=== PATIENT | female | born 1965 | race Two or more races ===

== ENCOUNTER 2017-11-17 19:41 | Inpatient (IN) | payer SELFPAY ==
[~2017-11-17] VITALS: Ht 167.6 cm; Wt 72.8 kg
[2017-11-17 21:08] LABS: Basophils # (auto) 0 uL; Basophils % (auto) 0.3 % (0.0-2.0); Eosinophils # (auto) 0.1 uL; Eosinophils % (auto) 0.9 % (0.0-7.0); Hematocrit 36.5 % (36.0-46.0); Lymphocytes # (auto) 1.2 uL; Lymphocytes % (auto) 9.9 % (10.0-50.0); Mean Corpuscular Hemoglobin 31.1 pg (28.0-32.0); Mean Corpuscular Hgb Conc. 32.8 g/dL (32.0-36.0); Mean Corpuscular Volume 94.8 fL (80.0-100.0); Monocytes # (auto) 0.7 uL; Monocytes % (auto) 5.6 % (0.0-12.0); Neutrophils # (auto) 10.2 uL; Neutrophils % (auto) 83.3 % (37.0-80.0); Platelet Count (auto) 377 10^3/uL (140-450); Red Blood Cells 3.85 10^6/uL (4.0-5.20); Red Cell Distribution Width 15.1 % (11.8-14.3); White Blood Cell 12.2 10^3/uL (4.4-10.8)
[2017-11-17 21:26] LABS: BUN/Creatinine Ratio 12.3; Bilirubin, Total 0.4 mg/dL (0.2-1.0); Calcium 8.8 mg/dL (8.5-10.1); Potassium 3.9 mmol/L (3.5-5.1); Total Protein 7.2 g/dL (6.4-8.2)
[2017-11-18 02:16] LABS: Urine Bacteria None Seen /hpf (None Seen); Urine WBC None Seen /hpf (0 - 5)
[2017-11-18 02:37] LABS: Urine Blood Normal /uL (Negative); Urine Specific Gravity 1.005 (1.001-1.035)
[2017-11-18] MEDS ORDERED: ONDANSETRON HCL 4 MG/2 ML VIAL IV ONE ×2 (03:00→05:45)
[2017-11-18] MEDS ORDERED: MORPHINE SULFATE 10 MG/ML INJ 1ML SDV IV ONE (03:00)
[2017-11-18] MEDS ORDERED: HYDROmorphone HCL 2 MG/ML VL IV ONE (05:45)
[2017-11-18] MEDS ORDERED: HYDROmorphone HCL 2 MG/ML VL IV PRN ×2 (06:15→14:30)
[2017-11-18] MEDS ORDERED: ACETAMINOPHEN 500 MG TAB PO PRN (06:15)
[2017-11-18] MEDS: SODIUM CHLORIDE 0.9% 1,000 ML IV SCH ×3 (06:28→22:28)
[2017-11-18 06:59] LABS: Basophils # (auto) 0 uL; Basophils % (auto) 0.3 % (0.0-2.0); Eosinophils # (auto) 0 uL; Eosinophils % (auto) 0.2 % (0.0-7.0); Hematocrit 32.4 % (36.0-46.0); Hemoglobin 10.7 g/dL (12.2-16.2); Lymphocytes # (auto) 0.9 uL; Lymphocytes % (auto) 7.7 % (10.0-50.0); Mean Corpuscular Hgb Conc. 32.9 g/dL (32.0-36.0); Mean Corpuscular Volume 94.2 fL (80.0-100.0); Monocytes # (auto) 0.5 uL; Monocytes % (auto) 3.7 % (0.0-12.0); Neutrophils # (auto) 10.7 uL; Neutrophils % (auto) 88.1 % (37.0-80.0); Platelet Count (auto) 358 10^3/uL (140-450); Red Blood Cells 3.44 10^6/uL (4.0-5.20); Red Cell Distribution Width 14.7 % (11.8-14.3); White Blood Cell 12.2 10^3/uL (4.4-10.8)
[2017-11-18 07:24] LABS: BUN/Creatinine Ratio 21.8; Calcium 8.2 mg/dL (8.5-10.1); Potassium 4.1 mmol/L (3.5-5.1)
[2017-11-18] MEDS: cefTRIAXone 1GM/10ml IVPUSH 10 ML IV SCH (09:10)
[2017-11-18] MEDS: ONDANSETRON HCL 4 MG/2 ML VIAL IV PRN (10:16)
[2017-11-18] MEDS: metroNIDAZOLE 500MG/100ML 100 ML IV SCH ×2 (14:25→22:27)
[2017-11-18] MEDS ORDERED: HYDROmorphone HCL 2 MG/ML VL ONE (14:46)
[2017-11-18] MEDS: HYDROmorphone HCL 2 MG/ML VL IV PRN ×2 (15:00→20:03)
[2017-11-18] MEDS ORDERED: ABILIFY 5MG TABLET PO SCH (16:00)
[2017-11-18] MEDS ORDERED: IOHEXOL 350 MG/ML 100ML IJ ONE (16:07)
[2017-11-18 20:00] VITALS: BP 116/61
[2017-11-18 22:00] VITALS: BP 116/61
[2017-11-19] MEDS: HYDROmorphone HCL 2 MG/ML VL IV PRN ×6 (00:23→21:13)
[2017-11-19 05:00] VITALS: BP 132/86
[2017-11-19] MEDS: metroNIDAZOLE 500MG/100ML 100 ML IV SCH ×3 (05:50→21:54)
[2017-11-19 05:53] LABS: Basophils # (auto) 0.1 uL; Basophils % (auto) 0.6 % (0.0-2.0); Eosinophils # (auto) 0 uL; Eosinophils % (auto) 0.1 % (0.0-7.0); Hematocrit 34.4 % (36.0-46.0); Hemoglobin 11.3 g/dL (12.2-16.2); Lymphocytes # (auto) 0.6 uL; Lymphocytes % (auto) 4.5 % (10.0-50.0); Mean Corpuscular Hgb Conc. 32.8 g/dL (32.0-36.0); Mean Corpuscular Volume 94.7 fL (80.0-100.0); Monocytes # (auto) 0.9 uL; Monocytes % (auto) 7.1 % (0.0-12.0); Neutrophils % (auto) 87.7 % (37.0-80.0); Platelet Count (auto) 351 10^3/uL (140-450); Red Blood Cells 3.63 10^6/uL (4.0-5.20); Red Cell Distribution Width 14.8 % (11.8-14.3); White Blood Cell 12.5 10^3/uL (4.4-10.8)
[2017-11-19] MEDS: SODIUM CHLORIDE 0.9% 1,000 ML IV SCH ×3 (05:56→21:55)
[2017-11-19] MEDS: ONDANSETRON HCL 4 MG/2 ML VIAL IV PRN ×4 (05:56→21:13)
[2017-11-19 06:17] LABS: BUN/Creatinine Ratio 27.3; Calcium 8.1 mg/dL (8.5-10.1); Magnesium 2.6 mg/dL (1.6-2.6); Potassium 3.8 mmol/L (3.5-5.1)
[2017-11-19 08:00] VITALS: BP 124/81
[2017-11-19] MEDS: cefTRIAXone 1GM/10ml IVPUSH 10 ML IV SCH (09:04)
[2017-11-19 14:48] LABS: INR 1.02 (0.9-1.15); Partial Thromboplastin Time 24.5 sec (22.64-33.71); Prothrombin Time 11.1 sec (9.37-12.3)
[2017-11-19 16:23] VITALS: BP 119/75
[2017-11-19 20:00] VITALS: BP 122/90
[2017-11-19 22:00] VITALS: BP 122/90
[2017-11-20] MEDS: HYDROmorphone HCL 2 MG/ML VL IV PRN ×2 (01:19→05:21)
[2017-11-20] MEDS: ONDANSETRON HCL 4 MG/2 ML VIAL IV PRN ×3 (01:20→10:46)
[2017-11-20 05:00] VITALS: BP 139/75
[2017-11-20] MEDS: metroNIDAZOLE 500MG/100ML 100 ML IV SCH ×3 (06:04→21:44)
[2017-11-20] MEDS: SODIUM CHLORIDE 0.9% 1,000 ML IV SCH ×3 (06:22→21:44)
[2017-11-20 06:31] LABS: Basophils # (auto) 0 uL; Basophils % (auto) 0.3 % (0.0-2.0); Eosinophils # (auto) 0 uL; Hematocrit 34.1 % (36.0-46.0); Hemoglobin 11.1 g/dL (12.2-16.2); Lymphocytes # (auto) 0.6 uL; Lymphocytes % (auto) 4.9 % (10.0-50.0); Mean Corpuscular Hemoglobin 30.9 pg (28.0-32.0); Mean Corpuscular Hgb Conc. 32.5 g/dL (32.0-36.0); Mean Corpuscular Volume 95.2 fL (80.0-100.0); Monocytes # (auto) 0.8 uL; Monocytes % (auto) 6.7 % (0.0-12.0); Neutrophils # (auto) 10.6 uL; Neutrophils % (auto) 88.1 % (37.0-80.0); Platelet Count (auto) 342 10^3/uL (140-450); Red Blood Cells 3.59 10^6/uL (4.0-5.20); Red Cell Distribution Width 14.7 % (11.8-14.3)
[2017-11-20 07:02] LABS: BUN/Creatinine Ratio 37.9; Calcium 7.8 mg/dL (8.5-10.1); Potassium 3.7 mmol/L (3.5-5.1)
[2017-11-20 07:42] VITALS: BP 128/77
[2017-11-20 08:00] VITALS: BP 128/77
[2017-11-20] MEDS ORDERED: ROCURONIUM 10MG/ML 10ML VIAL IV ONE (08:03)
[2017-11-20] MEDS ORDERED: LIDOCAINE 1% HCL (LOCAL ANESTH.) INJ 20ML MDV ONE (08:03)
[2017-11-20] MEDS ORDERED: ceFAZolin 1GM/50ML 50 ML IV ONE (08:24)
[2017-11-20] MEDS ORDERED: SUCCINYLCHOLINE CHLORIDE 20 MG/ML 10ML VIAL IV ONE (08:28)
[2017-11-20] MEDS ORDERED: PROPOFOL 10 MG/ML 20 ML IV ONE (08:30)
[2017-11-20] MEDS ORDERED: MIDAZOLAM HCL 1MG/1ML-2 ML VIAL ONE (08:31)
[2017-11-20] MEDS: cefTRIAXone 1GM/10ml IVPUSH 10 ML IV SCH (08:36)
[2017-11-20] MEDS ORDERED: fentaNYL CITRATE 100 MCG/2 ML VL ONE (09:06)
[2017-11-20] MEDS ORDERED: KETOROLAC TROMETH 30 MG/ML 1ML VIAL ONE (09:58)
[2017-11-20] MEDS ORDERED: ONDANSETRON HCL 4 MG/2 ML VIAL IV ONE (10:15)
[2017-11-20] MEDS ORDERED: HYDROmorphone HCL 2 MG/ML VL IV PRN ×2 (10:15)
[2017-11-20] MEDS ORDERED: NALOXONE HCL 0.4 MG/ML VIAL IV PRN (10:15)
[2017-11-20 12:16] VITALS: BP 123/72
[2017-11-20 16:44] VITALS: BP 122/67
[2017-11-20 21:58] VITALS: BP 111/67
[2017-11-21] MEDS: HYDROmorphone HCL 2 MG/ML VL IV PRN ×2 (00:40→09:03)
[2017-11-21 04:33] VITALS: BP 120/80
[2017-11-21] MEDS: metroNIDAZOLE 500MG/100ML 100 ML IV SCH ×3 (05:30→22:00)
[2017-11-21] MEDS: SODIUM CHLORIDE 0.9% 1,000 ML IV SCH ×4 (05:48→23:46)
[2017-11-21 07:39] LABS: Basophils # (auto) 0 uL; Basophils % (auto) 0.2 % (0.0-2.0); Eosinophils # (auto) 0 uL; Eosinophils % (auto) 0.1 % (0.0-7.0); Hematocrit 27.7 % (36.0-46.0); Hemoglobin 9.3 g/dL (12.2-16.2); Lymphocytes # (auto) 0.9 uL; Lymphocytes % (auto) 11.3 % (10.0-50.0); Mean Corpuscular Hgb Conc. 33.4 g/dL (32.0-36.0); Mean Corpuscular Volume 95.6 fL (80.0-100.0); Monocytes # (auto) 0.9 uL; Monocytes % (auto) 10.5 % (0.0-12.0); Neutrophils # (auto) 6.5 uL; Neutrophils % (auto) 77.9 % (37.0-80.0); Platelet Count (auto) 259 10^3/uL (140-450); Red Cell Distribution Width 14.9 % (11.8-14.3); White Blood Cell 8.3 10^3/uL (4.4-10.8)
[2017-11-21 07:51] LABS: BUN/Creatinine Ratio 27.3; Calcium 7.2 mg/dL (8.5-10.1); Potassium 3.3 mmol/L (3.5-5.1)
[2017-11-21 08:14] VITALS: BP 126/79
[2017-11-21] MEDS: cefTRIAXone 1GM/10ml IVPUSH 10 ML IV SCH (09:03)
[2017-11-21 12:39] VITALS: BP 120/73
[2017-11-21 12:42] VITALS: BP 120/73
[2017-11-21] MEDS: POTASSIUM CHL 20MEQ/50ML 50 ML IV SCH ×2 (14:17→14:45)
[2017-11-21 17:27] VITALS: BP 127/80
[2017-11-21 22:00] VITALS: BP 134/75
[2017-11-21] MEDS: ONDANSETRON HCL 4 MG/2 ML VIAL IV PRN (23:31)
[2017-11-22] MEDS: metroNIDAZOLE 500MG/100ML 100 ML IV SCH ×3 (05:30→21:32)
[2017-11-22 05:47] VITALS: BP 128/80
[2017-11-22 07:00] LABS: Basophils # (auto) 0 uL; Basophils % (auto) 0.5 % (0.0-2.0); Eosinophils # (auto) 0 uL; Eosinophils % (auto) 0.4 % (0.0-7.0); Hematocrit 27.6 % (36.0-46.0); Hemoglobin 9.2 g/dL (12.2-16.2); Lymphocytes # (auto) 0.7 uL; Mean Corpuscular Hemoglobin 31.8 pg (28.0-32.0); Mean Corpuscular Hgb Conc. 33.4 g/dL (32.0-36.0); Mean Corpuscular Volume 95.3 fL (80.0-100.0); Monocytes # (auto) 0.6 uL; Monocytes % (auto) 8.7 % (0.0-12.0); Neutrophils % (auto) 79.4 % (37.0-80.0); Nucleated Red Blood Cells % 0.1 %; Platelet Count (auto) 251 10^3/uL (140-450); Red Blood Cells 2.89 10^6/uL (4.0-5.20); Red Cell Distribution Width 14.6 % (11.8-14.3); White Blood Cell 6.3 10^3/uL (4.4-10.8)
[2017-11-22 07:01] LABS: Calcium 7.7 mg/dL (8.5-10.1)
[2017-11-22 07:04] LABS: BUN/Creatinine Ratio 28.2
[2017-11-22 07:17] LABS: Potassium 2.9 mmol/L (3.5-5.1)
[2017-11-22 08:55] VITALS: BP 120/75
[2017-11-22] MEDS ORDERED: POTASSIUM CHLORIDE 40 MEQ, LIDOCAINE 1% (LOCAL ANESTH.) 4 ML in SODIUM CHL 0.9% 100 ML IV ONE (09:15)
[2017-11-22] MEDS: cefTRIAXone 1GM/10ml IVPUSH 10 ML IV SCH (10:26)
[2017-11-22 13:15] VITALS: BP 127/71
[2017-11-22 17:00] VITALS: BP 122/77
[2017-11-22 21:49] VITALS: BP 129/80
[2017-11-23] MEDS: HYDROmorphone HCL 2 MG/ML VL IV PRN ×2 (03:24→21:53)
[2017-11-23] MEDS: SODIUM CHLORIDE 0.9% 1,000 ML IV SCH ×2 (03:25→15:53)
[2017-11-23 05:02] VITALS: BP 127/68
[2017-11-23] MEDS: metroNIDAZOLE 500MG/100ML 100 ML IV SCH ×3 (05:39→21:52)
[2017-11-23 06:49] LABS: Hemoglobin 9.4 g/dL (12.2-16.2)
[2017-11-23 07:03] LABS: Magnesium 2.3 mg/dL (1.6-2.6)
[2017-11-23 08:17] VITALS: BP 138/82
[2017-11-23] MEDS: cefTRIAXone 1GM/10ml IVPUSH 10 ML IV SCH (09:10)
[2017-11-23] MEDS ORDERED: POTASSIUM CHLORIDE 40 MEQ, LIDOCAINE 1% (LOCAL ANESTH.) 4 ML in SODIUM CHL 0.9% 100 ML IV ONE (11:45)
[2017-11-23 12:53] VITALS: BP 129/76
[2017-11-23 17:18] VITALS: BP 142/97
[2017-11-23 20:00] VITALS: BP 129/71
[2017-11-23] MEDS: ONDANSETRON HCL 4 MG/2 ML VIAL IV PRN (21:01)
[2017-11-23 21:34] VITALS: BP 129/71
[2017-11-24] MEDS: SODIUM CHLORIDE 0.9% 1,000 ML IV SCH ×3 (00:45→12:44)
[2017-11-24 05:00] VITALS: BP 135/85
[2017-11-24] MEDS: metroNIDAZOLE 500MG/100ML 100 ML IV SCH ×3 (05:56→21:31)
[2017-11-24 06:52] LABS: Basophils # (auto) 0 uL; Basophils % (auto) 0.6 % (0.0-2.0); Eosinophils # (auto) 0.1 uL; Eosinophils % (auto) 1.7 % (0.0-7.0); Hematocrit 29.2 % (36.0-46.0); Hemoglobin 9.7 g/dL (12.2-16.2); Lymphocytes # (auto) 0.8 uL; Lymphocytes % (auto) 14.2 % (10.0-50.0); Mean Corpuscular Hemoglobin 31.4 pg (28.0-32.0); Mean Corpuscular Hgb Conc. 33.1 g/dL (32.0-36.0); Mean Corpuscular Volume 94.6 fL (80.0-100.0); Monocytes # (auto) 0.4 uL; Monocytes % (auto) 7.4 % (0.0-12.0); Neutrophils # (auto) 4.1 uL; Neutrophils % (auto) 76.1 % (37.0-80.0); Platelet Count (auto) 259 10^3/uL (140-450); Red Blood Cells 3.09 10^6/uL (4.0-5.20); Red Cell Distribution Width 15.1 % (11.8-14.3); White Blood Cell 5.4 10^3/uL (4.4-10.8)
[2017-11-24 07:05] LABS: BUN/Creatinine Ratio 38.7; Calcium 7.5 mg/dL (8.5-10.1); Potassium 3.2 mmol/L (3.5-5.1)
[2017-11-24 09:00] VITALS: BP 113/61
[2017-11-24] MEDS: cefTRIAXone 1GM/10ml IVPUSH 10 ML IV SCH (10:44)
[2017-11-24] MEDS ORDERED: POTASSIUM CHLORIDE 40 MEQ, LIDOCAINE 1% (LOCAL ANESTH.) 4 ML in SODIUM CHL 0.9% 100 ML IV ONE (11:30)
[2017-11-24 13:00] VITALS: BP 127/72
[2017-11-24 17:18] VITALS: BP 116/66
[2017-11-24 20:00] VITALS: BP 132/82
[2017-11-24 22:00] VITALS: BP 132/82
[2017-11-24] MEDS: HYDROmorphone HCL 2 MG/ML VL IV PRN (22:03)
[2017-11-25] MEDS: SODIUM CHLORIDE 0.9% 1,000 ML IV SCH ×3 (02:15→21:40)
[2017-11-25 05:00] VITALS: BP 135/88
[2017-11-25] MEDS: metroNIDAZOLE 500MG/100ML 100 ML IV SCH ×3 (05:56→21:40)
[2017-11-25 06:43] LABS: Hematocrit 31.9 % (36.0-46.0); Hemoglobin 10.6 g/dL (12.2-16.2)
[2017-11-25 07:03] LABS: BUN/Creatinine Ratio 19.4; Calcium 7.7 mg/dL (8.5-10.1)
[2017-11-25 07:47] LABS: Potassium 2.9 mmol/L (3.5-5.1)
[2017-11-25 08:00] VITALS: BP 125/79
[2017-11-25 09:00] VITALS: BP 125/79
[2017-11-25] MEDS: cefTRIAXone 1GM/10ml IVPUSH 10 ML IV SCH (11:26)
[2017-11-25] MEDS ORDERED: POTASSIUM CHL 20 Meq TABLET PO ONE ×2 (11:30→16:00)
[2017-11-25] MEDS ORDERED: POTASSIUM CHLORIDE 20 MEQ, LIDOCAINE 1% (LOCAL ANESTH.) 2 ML in SODIUM CHL 0.9% 100 ML IV ONE (12:00)
[2017-11-25] MEDS ORDERED: METR500T PO (12:26)
[2017-11-25] MEDS ORDERED: LEVO500T21 PO (12:26)
[2017-11-25 13:00] VITALS: BP 132/89
[2017-11-25] MEDS: ONDANSETRON HCL 4 MG/2 ML VIAL IV PRN (16:05)
[2017-11-25 17:00] VITALS: BP 129/76
[2017-11-25] MEDS: HYDROcodone-ACET 5/325MG TAB PO PRN (18:54)
[2017-11-25 22:00] VITALS: BP 117/73
[2017-11-26 05:00] VITALS: BP 123/82
[2017-11-26] MEDS: metroNIDAZOLE 500MG/100ML 100 ML IV SCH (05:42)
[2017-11-26] MEDS: ONDANSETRON HCL 4 MG/2 ML VIAL IV PRN (05:47)
[2017-11-26] MEDS: HYDROcodone-ACET 5/325MG TAB PO PRN (05:54)
[2017-11-26 08:00] VITALS: BP 111/69
[2017-11-26 08:44] VITALS: BP 111/69
[2017-11-26] MEDS: cefTRIAXone 1GM/10ml IVPUSH 10 ML IV SCH (09:21)
[2017-11-26 09:54] LABS: Calcium 8.1 mg/dL (8.5-10.1); Potassium 3.2 mmol/L (3.5-5.1)
[2017-11-26] MEDS ORDERED: POTASSIUM CHL 20 Meq TABLET PO ONE (11:15)
[2017-11-26 11:28] VITALS: BP 111/69
[2017-11-26 12:47] VITALS: BP 111/72
== END 2017-11-26 13:40 | disposition home or self-care (01) | DRG 854 ==
LOC: ER 19:41 → OVERFLOW 19:42 → CENTRAL 11-18 18:34
PROVIDERS: ADMIT Nurse Practitioner Family; ATTEND Internal Medicine
PROC: 0D9670Z Drainage of Stomach with Drainage Device, Via Natural or Artificial Opening (ICD-10-PCS; 2017-11-18)
PROC: 0DTJ0ZZ Resection of Appendix, Open Approach (ICD-10-PCS; 2017-11-20)
PROC: 0DN80ZZ Release Small Intestine, Open Approach (ICD-10-PCS; principal; 2017-11-20 08:37)
DX: A41.9 Sepsis, unspecified organism (principal); K56.50 Intestinal adhesions [bands], unspecified as to partial versus complete obstruction; D64.9 Anemia, unspecified; E87.6 Hypokalemia; Z82.49 Family history of ischemic heart disease and other diseases of the circulatory system; I25.10 Atherosclerotic heart disease of native coronary artery without angina pectoris
CPT/HCPCS: 36415; 71045; 74176; 74250; 80048; 80053; 81001; 81025; 82150; 83690; 83735; 84132; 85014; 85018; 85025; 85610; 85730; 86850; 86900; 86901; 87040; 93005; 96374; 96375; 96376; J0330; J0690; J1885; J2001; J2250; J2405; J2704; J3490